=== PATIENT | female | born 1990 | race Caucasian/White ===

== ENCOUNTER 2017-10-04 13:36 | Emergency (ER) | payer SELFPAY ==
[~2017-10-04] VITALS: Ht 165.1 cm; Wt 104.3 kg
[~2017-10-04 13:36] MED LIST: ATARAX25 MG PO; FLEXERIL10 MG PO; MOTRIN800 MG PO; NAPROSYN500 MG PO; PERCOCET 325 MG1 TA5 PO; PREDNICOT10 MG PO; VICODIN1 TAB PO
[2017-10-04] MEDS ORDERED: FLONASE ALLERG9.9 ML NAS (15:19)
[2017-10-04] MEDS ORDERED: AUGMENTIN 875875 MG PO (15:19)
[2017-10-04] MEDS ORDERED: PROAIR HFA8.5 GM INH (15:19)
== END 2017-10-04 16:04 | disposition home or self-care (01) ==
LOC: ED 13:36
DX: H66.92 Otitis media, unspecified, left ear (principal); J32.9 Chronic sinusitis, unspecified; F17.200 Nicotine dependence, unspecified, uncomplicated

== ENCOUNTER 2017-11-18 20:03 | Emergency (ER) | payer OTHER ==
[~2017-11-18] VITALS: Ht 165.1 cm; Wt 102.1 kg
[~2017-11-18 20:03] MED LIST changes: +AUGMENTIN 875875 MG PO; +FLONASE ALLERG9.9 ML NAS; +PROAIR HFA8.5 GM INH
[2017-11-18] MEDS ORDERED: PRENATAL 19 CH1 EAC1 PO (20:26)
[2017-11-18 20:46] LABS: BILIRUBIN NEGATIVE (NEGATIVE); BLOOD TRACE-LYSED (NEGATIVE); CLARITY SL CLOUDY (CLEAR); COLOR YELLOW (YELLOW); GLUCOSE NEGATIVE (NEGATIVE); KETONE NEGATIVE (NEGATIVE); LEUKO ESTERASE NEGATIVE (NEGATIVE); NITRITE NEGATIVE (NEGATIVE); SPECIFIC GRAVITY 1.025 (1.005-1.030)
[2017-11-18 21:00] LABS: BACTERIA TRACE; MUCOUS TRACE; WBC 0-2 wbc/hpf (0-5)
[2017-11-18 21:15] LABS: BASO % 0.3 % (0.0-1.0); EOS # 0.2 10*3/uL (0.0-0.4); EOS % 1.7 % (1.0-4.0); HEMATOCRIT 38.8 % (37.0-47.0); HEMOGLOBIN 13.7 g/dl (12.0-16.0); LYMPH # 3.4 10*3/uL (1.3-4.4); LYMPH % 28.1 % (27.0-41.0); MEAN CELL VOLUME 89.2 fl (81.0-99.0); MEAN CORPUSCULAR HGB 31.5 pg (27.0-31.0); MEAN CORPUSCULAR HGB CONC 35.3 g/dl (33.0-37.0); MEAN PLATELET VOLUME 10.2 fl (9.6-12.3); MONO # 0.7 10*3/uL (0.1-1.0); NEUT # 7.6 10*3/uL (2.3-7.9); NEUT % 63.6 % (47.0-73.0); PLATELET COUNT AUTOMATED 304 10*3/uL (130-400); RED BLOOD COUNT 4.35 10*6/uL (4.10-5.10); RED CELL DISTRI WIDTH 13.5 % (0-14.5)
[2017-11-18 21:31] LABS: ALBUMIN 3.6 gm/dl (3.1-4.5); ALKALINE PHOSPHATASE 81 U/L (45-117); BUN 11 mg/dl (7-24); CHLORIDE 106 mmol/L (98-107); CREATININE 0.68 mg/dL (0.55-1.02); POTASSIUM 3.2 mmol/L (3.5-5.1); SGOT/AST 18 IU/L (3-35); SGPT/ALT 28 U/L (12-78); SODIUM 139 mmol/L (136-145); TOTAL PROTEIN 7.1 gm/dL (6.4-8.2)
== END 2017-11-18 23:49 | disposition home or self-care (01) ==
LOC: ED 20:03
PROVIDERS: Emergency Medicine Emergency Medical Services; Physician Assistant
DX: O26.891 Other specified pregnancy related conditions, first trimester (principal); O99.331 Smoking (tobacco) complicating pregnancy, first trimester; R10.2 Pelvic and perineal pain; F17.200 Nicotine dependence, unspecified, uncomplicated; Z79.899 Other long term (current) drug therapy; Z3A.01 Less than 8 weeks gestation of pregnancy

== ENCOUNTER 2017-12-27 18:13 | Emergency (ER) | payer OTHER ==
[~2017-12-27 18:13] MED LIST changes: +PRENATAL 19 CH1 EAC1 PO
[2017-12-27] MEDS ORDERED: METHYLDOPA250 M1 PO (18:40)
[2017-12-27] MEDS ORDERED: Phenergan25 MG PO (18:41)
[2017-12-27 19:10] LABS: BILIRUBIN NEGATIVE (NEGATIVE); BLOOD 1+ (NEGATIVE); CLARITY CLEAR (CLEAR); COLOR YELLOW (YELLOW); GLUCOSE NEGATIVE (NEGATIVE); KETONE NEGATIVE (NEGATIVE); LEUKO ESTERASE NEGATIVE (NEGATIVE); NITRITE NEGATIVE (NEGATIVE); UROBILINOGEN 0.2 E.U./dl (0.2-1.0)
[2017-12-27 19:24] LABS: BACTERIA TRACE; EPITHELIAL CELLS TNTC; WBC 0-2 wbc/hpf (0-5)
[2017-12-27] MEDS ORDERED: OMNICEF300 MG PO (19:27)
== END 2017-12-27 19:36 | disposition home or self-care (01) ==
LOC: ED 18:13
PROVIDERS: Nurse Practitioner Family
DX: O26.891 Other specified pregnancy related conditions, first trimester (principal); H65.93 Unspecified nonsuppurative otitis media, bilateral; Z3A.12 12 weeks gestation of pregnancy; Z98.890 Other specified postprocedural states; Z79.899 Other long term (current) drug therapy

== ENCOUNTER 2018-01-01 03:37 | Emergency (ER) | payer OTHER ==
[~2018-01-01] VITALS: Ht 165.1 cm; Wt 119.7 kg
[~2018-01-01 03:37] MED LIST changes: -MACROBID100 M1 PO
[2018-01-01 04:56] LABS: BILIRUBIN NEGATIVE (NEGATIVE); BLOOD 3+ (NEGATIVE); CLARITY CLEAR (CLEAR); COLOR YELLOW (YELLOW); GLUCOSE NEGATIVE (NEGATIVE); KETONE NEGATIVE (NEGATIVE); LEUKO ESTERASE 2+ (NEGATIVE); NITRITE NEGATIVE (NEGATIVE); UROBILINOGEN 0.2 E.U./dl (0.2-1.0)
[2018-01-01 05:04] LABS: RBC 31-40 rbc/hpf (0-2)
[2018-01-01 05:05] LABS: BACTERIA 2+
[2018-01-01] MEDS ORDERED: MACROBID100 M1 PO (05:15)
== END 2018-01-01 05:19 | disposition home or self-care (01) ==
LOC: ED 03:37
PROVIDERS: Emergency Medicine Emergency Medical Services
DX: O46.91 Antepartum hemorrhage, unspecified, first trimester (principal); O23.41 Unspecified infection of urinary tract in pregnancy, first trimester; O16.1 Unspecified maternal hypertension, first trimester; O99.331 Smoking (tobacco) complicating pregnancy, first trimester; F17.210 Nicotine dependence, cigarettes, uncomplicated; Z3A.12 12 weeks gestation of pregnancy; Z98.890 Other specified postprocedural states; Z79.899 Other long term (current) drug therapy

== ENCOUNTER → 2018-01-01 | Outpatient (CLI) | payer OTHER ==
[~2018-01-01] MED LIST changes: +MACROBID100 M1 PO; +METHYLDOPA250 M1 PO; +OMNICEF300 MG PO; +Phenergan25 MG PO
== END | disposition home or self-care (01) ==
LOC: US 10:22
DX: O26.851 Spotting complicating pregnancy, first trimester (principal); N93.9 Abnormal uterine and vaginal bleeding, unspecified; Z3A.01 Less than 8 weeks gestation of pregnancy